=== PATIENT | female | born 1970 | race Asian ===

== ENCOUNTER 2017-03-30 18:06 | Emergency (ER) | payer BC ==
[~2017-03-30] VITALS: Ht 162.6 cm; Wt 54.4 kg
--- NOTE | 2017-03-30 19:37 | Emergency Room Report ---
History of Present Illness General Chief Complaint: General Complaint Source: Patient Present Illness HPI 46 YO Female presents to the ED BIBA for bizarre changes to behavior over 3 days. per family pt. had hx of psychiatric episode years ago requiring institutionalization. pt. is not currently on medications. brother reports yesterday pt. stated she was hearing voices and believing the house is haunted. Pt. does not answer questions, and refuses to make eye contact. family also states several times she was attempting to wear her bra and underwear outside of clothing, and has been seemingly depressed. refuses to leave the house. and recently refuses food and water. HPI and ROS limited due to poor pt. cooperation. Allergies: Coded Allergies: No Known Allergies (Unverified , 03/30/17) Patient History Past Medical History: see triage record, psych hx Past Surgical History: none Pertinent Family History: none Last Menstrual Period: unk Nursing Documentation-PMH History Of Psychiatric Problem: Yes - Per father unknown psych issue ~ 20 yrs ago Review of Systems All Other Systems: limited Physical Exam Vital Signs Date Time Temp Pulse Resp B/P Pulse Ox O2 Delivery O2 Flow Rate FiO2 03/30/17 18:19 97.5 83 16 168/86 99 Room Air Sp02 EP Interpretation: reviewed, normal General Appearance: no apparent distress, alert, GCS 15, non-toxic, thin Head: normocephalic, atraumatic Eyes: bilateral eye PERRL, bilateral eye normal inspection ENT: no angioedema, moist mucus membranes Neck: full range of motion, supple/symm/no masses Respiratory: lungs clear, normal breath sounds, speaking full sentences Cardiovascular #1: regular rate, rhythm, no edema, normal capillary refill Gastrointestinal: normal bowel sounds, non tender, soft, no guarding, no rebound Rectal: deferred Musculoskeletal: back normal, gait/station normal, normal range of motion, non- tender Neurologic: alert, motor strength/tone normal, sensory intact, other - does not respond, avoids eye contact. Psychiatric: other - does not respond or hold conversation, refuses to make eye contact, blinks repeatedly, flat affect. Skin: normal color, no rash, warm/dry, well hydrated Medical Decision Making PA Attestation Dr. Samaniego is my supervising Physician whom patient management has been discussed with. Diagnostic Impression: Primary Impression: Behavioral change Additional Impression: Urinary tract infection Qualified Codes: N30.00 - Acute cystitis without hematuria ER Course Pt. presents to the ED for bizarre changes to behavior over 3 days. per family pt. had hx of psychiatric episode years ago requiring institutionalization. pt. is not currently on medications. brother reports yesterday pt. stated she was hearing voices and believing the house is haunted. Pt is hyperactive, and has a very anxious and restless affect. Ddx considered but are not limited to OD, SI/HI, psychosis, UTI, intoxication Vital signs: are WNL, pt. is afebrile H&PE are most consistent with behavioral/mental health issue - on subsequent re-assessments pt. tightly was closing eyes and resisting attempts to open them. ORDERS: -CBC, CMP: unremarkable- no signs of electrolyte abnormality. -UA: negative for infection see results attached. -UDS: negative -Salicylates and Acetaminophen - no acute intoxication. -UA: elevated wbc's and leuks, moderate bacteria consistent with infection. ED INTERVENTIONS: - Psych. Consult Dr. Richardson: will come see pt. in the am, recommends 10mg Zyprexa QHS. - 1 gram Rocephin IV for UTI -PET team evaluation per Dr. Carvalho pt. Signed out to DR. Carvalho. DISPOSITION: awaiting psych. consult by Dr. Richardson for hearing voices, bizarre behavior, and refusal to eat/drink/talk x 3 days. Labs Test 03/30/17 19:32 03/30/17 20:05 White Blood Count 5.3 K/UL (4.8-10.8) Red Blood Count 5.54 M/UL (4.20-5.40) Hemoglobin 14.5 G/DL (12.0-16.0) Hematocrit 45.5 % (37.0-47.0) Mean Corpuscular Volume 82 FL (80-99) Mean Corpuscular Hemoglobin 26.3 PG (27.0-31.0) Mean Corpuscular Hemoglobin Concent 31.9 G/DL (32.0-36.0) Red Cell Distribution Width 16.7 % (11.6-14.8) Platelet Count 309 K/UL (150-450) Mean Platelet Volume 6.5 FL (6.5-10.1) Neutrophils (%) (Auto) 67.4 % (45.0-75.0) Lymphocytes (%) (Auto) 19.5 % (20.0-45.0) Monocytes (%) (Auto) 11.0 % (1.0-10.0) Eosinophils (%) (Auto) 1.1 % (0.0-3.0) Basophils (%) (Auto) 1.0 % (0.0-2.0) Sodium Level 141 mEQ/L (135-145) Potassium Level 3.6 mEQ/L (3.4-4.9) Chloride Level 102 mEQ/L (98-107) Carbon Dioxide Level 21 mEQ/L (20-30) Anion Gap 18 (5-15) Blood Urea Nitrogen 16 mg/dL (7-23) Creatinine 0.7 mg/dL (0.5-0.9) Estimat Glomerular Filtration Rate > 60 mL/min (>60) Glucose Level 98 mg/dL (74-106) Calcium Level 9.3 mg/dL (8.6-10.2) Total Bilirubin 0.7 mg/dL (0.0-1.2) Aspartate Amino Transf (AST/SGOT) 17 U/L (5-40) Alanine Aminotransferase (ALT/SGPT) 9 U/L (3-33) Alkaline Phosphatase 44 U/L (35-104) Total Protein 7.5 g/dL (6.6-8.7) Albumin 4.2 g/dL (3.5-5.2) Globulin 3.3 g/dL Albumin/Globulin Ratio 1.2 (1.0-2.7) Salicylates Level < 1 mg/dL (10-30) Acetaminophen Level < 10 ug/mL (10-30) Serum Alcohol < 10 mg/dL Urine Color Yellow Urine Appearance Slightly cloudy Urine pH 6.0 (4.5-8.0) Urine Specific [place] 1.025 (1.005-1.035) Urine Protein 2+ (NEGATIVE) Urine Glucose (UA) Negative (NEGATIVE) Urine Ketones 4+ (NEGATIVE) Urine Occult Blood Negative (NEGATIVE) Urine Nitrite Negative (NEGATIVE) Urine Bilirubin Negative (NEGATIVE) Urine Urobilinogen Normal MG/DL (0.0-1.0) Urine Leukocyte Esterase 1+ (NEGATIVE) Urine RBC 0-2 /HPF (0 - 2) Urine WBC 15-20 /HPF (0 - 2) Urine Squamous Epithelial Cells Moderate /LPF (NONE/OCC) Urine Amorphous Sediment Moderate /LPF (NONE) Urine Bacteria Moderate /HPF (NONE) Urine Opiates Screen Negative (NEGATIVE) Urine Barbiturates Screen Negative (NEGATIVE) Phencyclidine (PCP) Screen Negative (NEGATIVE) Urine Amphetamines Screen Negative (NEGATIVE) Urine Benzodiazepines Screen Negative (NEGATIVE) Urine Cocaine Screen Negative (NEGATIVE) Urine Marijuana (THC) Screen Negative (NEGATIVE) Last Vital Signs Date Time Temp Pulse Resp B/P Pulse Ox O2 Delivery O2 Flow Rate FiO2 03/30/17 18:19 97.5 83 16 168/86 99 Room Air Signed Out To: Angelina Jay Mar 30, 2017 19:37
[2017-03-30 20:05] LABS: EOSINOPHILS % (AUTO) 1.1 % (0.0-3.0); LYMPHOCYTES % (AUTO) 19.5 % (20.0-45.0); MEAN CORPUSCULAR HEMOGLOBIN 26.3 PG (27.0-31.0); MEAN CORPUSCULAR HGB CONC 31.9 G/DL (32.0-36.0); MEAN CORPUSCULAR VOLUME 82 FL (80-99); MEAN PLATELET VOLUME 6.5 FL (6.5-10.1); NEUTROPHILS % (AUTO) 67.4 % (45.0-75.0); PLATELET COUNT 309 K/UL (150-450); RED BLOOD COUNT 5.54 M/UL (4.20-5.40); RED CELL DISTRIBUTION WIDTH 16.7 % (11.6-14.8); WHITE BLOOD COUNT 5.3 K/UL (4.8-10.8)
[2017-03-30] MEDS ORDERED: NKM (20:06)
[2017-03-30 20:24] LABS: ACETAMINOPHEN < 10 ug/mL (10-30); ALANINE AMINOTRANSFERASE 9 U/L (3-33); ALBUMIN/GLOBULIN RATIO 1.2 (1.0-2.7); ALCOHOL < 10 mg/dL; ANION GAP 18 (5-15); ASPARTATE AMINO TRANSFERASE 17 U/L (5-40); CALCIUM 9.3 mg/dL (8.6-10.2); CARBON DIOXIDE 21 mEQ/L (20-30); CHLORIDE 102 mEQ/L (98-107); CREATININE 0.7 mg/dL (0.5-0.9); GLOMERULAR FILTRATION RATE > 60 mL/min (>60); HEMOLYSIS 3; POTASSIUM 3.6 mEQ/L (3.4-4.9); SODIUM 141 mEQ/L (135-145); TOTAL PROTEIN 7.5 g/dL (6.6-8.7)
[2017-03-30 20:54] LABS: APPEARANCE,URINE SLIGHTLY CLOUDY; KETONES,URINE 4+ (NEGATIVE); NITRITE,URINE NEGATIVE (NEGATIVE); PROTEIN,URINE 2+ (NEGATIVE)
[2017-03-30 20:55] LABS: LEUKOCYTE ESTERASE ,URINE 1+ (NEGATIVE); UROBILINOGEN,URINE NORMAL MG/DL (0.0-1.0)
[2017-03-30 21:06] LABS: RBC,URINE 0-2 /HPF (0 - 2); SQUAMOUS EPITHELIAL CELL,UR MODERATE /LPF (NONE/OCC); WBC,URINE 15-20 /HPF (0 - 2)
[2017-03-30 21:07] LABS: AMORPHOUS SEDIMENT,UR MODERATE /LPF; BACTERIA,URINE MODERATE /HPF
[2017-03-30] MEDS ORDERED: cefTRIAXone 1 GM in NS 55 ML IVPB ONE (21:45)
[2017-03-30 22:52] VITALS: BP 139/81
[2017-03-31 02:19] VITALS: BP 132/87
[2017-03-31 06:30] VITALS: BP 129/85
[2017-03-31 07:15] VITALS: BP 124/72
[2017-03-31 13:21] VITALS: BP 124/72
--- NOTE | 2017-03-31 23:57 | Consultation ---
History of Present Illness General Chief Complaint: General Complaint Present Illness HPI 46 YO Female presents to the ED BIBA for bizarre changes to behavior over 3 days. per family pt. had hx of psychiatric episode years ago requiring institutionalization. the pt was uncooperative and disorganized, kept her eyes closed and was responding to internal stimuli the pt was also delusional the pt was given zyprexa. Allergies: Coded Allergies: No Known Allergies (Unverified , 03/30/17) Medication History Scheduled No Known Medications* (NKM - No Known Medications*), 0 ., (Reported) Patient History Limited by: medical condition History Provided By: Patient, Family Member, Medical Record, PMD Healthcare decision maker Resuscitation status Advanced Directive on File Review of Systems Psychiatric: Reports: emotional problems, hallucinations, see HPI Physical Exam General Appearance: alert, confused, thin Neurologic: alert, unresponsiveness, depressed affect Last 24 Hour Vital Signs Date Time Temp Pulse Resp B/P Pulse Ox O2 Delivery O2 Flow Rate FiO2 03/31/17 13:21 98.7 70 18 124/72 99 Room Air 03/31/17 07:15 98.7 70 18 124/72 99 Room Air 03/31/17 06:30 99.0 75 16 129/85 97 Room Air 03/31/17 02:19 97.5 81 16 132/87 99 Room Air Intake and Output 03/30/17 03/31/17 19:00 07:00 Intake Total 55 ml Balance 55 ml Intake IV Total 55 ml # Voids 1 Height (Feet): 5 Height (Inches): 4.00 Weight (Pounds): 120 Assessment/Plan Status: not improved, deteriorating Assessment/Plan schizophrenia -dc to psych guzman [id number] Dorian Richardson M.D. Mar 31, 2017 23:57
== END 2017-03-31 13:22 ==
LOC: EDBD 18:06 → EMR 18:15
DX: F91.9 Conduct disorder, unspecified (principal); N39.0 Urinary tract infection, site not specified
CPT/HCPCS: 36415; 80053; 80300; 81003; 85025; 87086; 96360; 99285; G0480; J0696; 80329